=== PATIENT | female | born 1940 | race Caucasian/White ===

== ENCOUNTER → 2017-12-03 | Outpatient (CLI) | payer OTHER ==
[~2017-12-03] MED LIST: ALBU90OI INH; CEFP200 PO; CHOL10002; COENZYME Q-1030 MG; FERRO-TIME325 MG PO; FURO40 PO; LISI5 PO; Lovastatin20 MG PO; PANT20 PO; POTCHL20ER PO; PRED20 PO; Sotalol80 MG PO; XARELTO20 MG PO
== END | disposition home or self-care (01) ==
LOC: LAB 16:54
DX: N39.0 Urinary tract infection, site not specified (principal)
CPT/HCPCS: 87086; 87147

== ENCOUNTER → 2018-07-01 | Outpatient (CLI) | payer OTHER | END | disposition home or self-care (01) | LOC: LAB SHORT 12:58 → LAB EV 12:58 | DX: M10.072 Idiopathic gout, left ankle and foot (principal) | CPT/HCPCS: 84550 ==

== ENCOUNTER → 2018-10-02 | Outpatient (CLI) | payer OTHER | END | disposition home or self-care (01) | LOC: LAB EV 13:38 → LAB SHORT 13:38 | DX: N39.0 Urinary tract infection, site not specified (principal) | CPT/HCPCS: 87086 ==

== ENCOUNTER → 2019-05-07 | Outpatient (CLI) | payer OTHER ==
[~2019-05-07] MED LIST changes: -CHOL10002; +CHOL10002 PO; +HYDR1TAB94 PO; +LIDO700A20 TOP; +METO50ER; +Zyloprim100 MG PO
== END | disposition home or self-care (01) ==
LOC: LAB SHORT 13:14 → LAB EV 13:14
DX: N39.0 Urinary tract infection, site not specified (principal)
CPT/HCPCS: 87077; 87086; 87186

== ENCOUNTER → 2019-05-07 | Outpatient (CLI) | payer OTHER ==
[2019-05-07 12:21] LABS: BASOPHILS ABSOLUTE AUTO 0.04 K/mm3 (0.00-0.23); BASOPHILS PERCENT AUTO 0 % (0-2); EOSINOPHILS ABSOLUTE AUTO 0.17 K/mm3 (0.00-0.68); EOSINOPHILS PERCENT AUTO 2 % (0-6); Hematocrit 37.5 % (33.0-51.0); Hemoglobin 12.5 g/dL (11.5-16.0); IMMATURE GRAN ABSOLUTE AUTO 0.05 K/mm3 (0.00-0.10); IMMATURE GRAN PERCENT AUTO 0 % (0-1); LYMPHOCYTES ABSOLUTE AUTO 2.09 K/mm3 (0.84-5.20); LYMPHOCYTES PERCENT AUTO 18 % (21-46); MONOCYTES ABSOLUTE AUTO 0.61 K/mm3 (0.16-1.47); MONOCYTES PERCENT AUTO 5 % (4-13); Mean Corpuscular HGB Conc 33.3 g/dL (31.5-36.5); Mean Corpuscular Volume 87 fL (80-100); Mean Platelet Volume 10.5 fL (9.1-12.4); NEUTROPHILS ABSOLUTE AUTO 8.75 K/mm3 (1.96-9.15); NEUTROPHILS PERCENT AUTO 75 % (41-73); Platelet Count 260 K/mm3 (150-400); RDW Standard Deviation 43.9 fL (35.1-46.3); Red Blood Cell Count 4.31 M/mm3 (3.80-5.20); White Blood Cell Count 11.71 K/mm3 (4.00-11.30)
[2019-05-07 12:42] LABS: Bun/Creatinine Ratio 27.2 (12.0-20.0); Calcium, Blood 9.3 mg/dL (8.5-10.1); Creatinine, Blood 1.14 mg/dL (0.40-1.00); Potassium, Blood 4.5 mmol/L (3.5-5.5)
== END | disposition home or self-care (01) ==
LOC: LAB SHORT 12:18 → LAB EV 12:18
PROVIDERS: Physician Assistant Surgical
DX: R06.00 Dyspnea, unspecified (principal)
CPT/HCPCS: 80048; 83880; 84484; 85025

== ENCOUNTER 2019-05-19 08:28 | Emergency (ER) | payer OTHER ==
[~2019-05-19] VITALS: Ht 157.5 cm; Wt 115.7 kg
[~2019-05-19 08:28] MED LIST changes: -HYDR1TAB94 PO; -LIDO700A20 TOP; -METO50ER; -Zyloprim100 MG PO
[2019-05-19 09:39] LABS: Source, Urine Clean Catch
[2019-05-19 09:41] LABS: Bilirubin, Urine Neg (Neg); Blood, Urine 2+ (Neg); Glucose Qualitative, Urine Neg (Neg); Ketones, Urine Neg (Neg); Leukocyte Esterase, Urine 1+ (Neg); Nitrite, Urine Neg (Neg); Protein, Urine Neg (Neg); Urobilinogen, Urine NORM (Normal); pH, Urine 6.5 (5.0-8.0)
[2019-05-19 09:48] LABS: Appearance, Urine Clear (Clear); Color, Urine Yellow (P-Yellow)
[2019-05-19 09:50] LABS: Bacteria Rare /hpf; Squamous Epithelial Cells Few /hpf (Few)
[2019-05-19] MEDS ORDERED: METO50ER (10:16)
[2019-05-19] MEDS ORDERED: Zyloprim100 MG PO (10:17)
[2019-05-19 11:52] LABS: BASOPHILS ABSOLUTE AUTO 0.03 K/mm3 (0.00-0.23); BASOPHILS PERCENT AUTO 0 % (0-2); EOSINOPHILS ABSOLUTE AUTO 0.07 K/mm3 (0.00-0.68); EOSINOPHILS PERCENT AUTO 1 % (0-6); Hematocrit 35.6 % (33.0-51.0); Hemoglobin 11.7 g/dL (11.5-16.0); IMMATURE GRAN ABSOLUTE AUTO 0.05 K/mm3 (0.00-0.10); IMMATURE GRAN PERCENT AUTO 1 % (0-1); LYMPHOCYTES ABSOLUTE AUTO 1.59 K/mm3 (0.84-5.20); LYMPHOCYTES PERCENT AUTO 17 % (21-46); MONOCYTES ABSOLUTE AUTO 0.59 K/mm3 (0.16-1.47); MONOCYTES PERCENT AUTO 6 % (4-13); Mean Corpuscular HGB 29.5 pg (26.0-34.0); Mean Corpuscular HGB Conc 32.9 g/dL (31.5-36.5); Mean Platelet Volume 9.9 fL (9.1-12.4); NEUTROPHILS ABSOLUTE AUTO 7.15 K/mm3 (1.96-9.15); NEUTROPHILS PERCENT AUTO 76 % (41-73); Platelet Count 241 K/mm3 (150-400); RDW Coefficient Variation 14.1 % (11.7-14.2); RDW Standard Deviation 46.3 fL (35.1-46.3); Red Blood Cell Count 3.97 M/mm3 (3.80-5.20); White Blood Cell Count 9.48 K/mm3 (4.00-11.30)
[2019-05-19 11:53] LABS: Mean Corpuscular Volume 90 fL (80-100)
[2019-05-19 12:14] LABS: Alanine Aminotransfer (ALT/SGP 19 U/L (12-78); Albumin, Blood 3.6 g/dL (3.4-5.0); Alk Phos 99 U/L (50-136); Anion Gap 7 mmol/L (6-16); Aspartate Aminotrans (AST/SGOT 11 U/L (12-37); Bilirubin, Total 0.5 mg/dL (0.1-1.0); Blood Urea Nitrogen 18 mg/dL (8-24); Bun/Creatinine Ratio 19.5 (12.0-20.0); CO2, Blood 27 mmol/L (21-32); Calcium, Blood 9.2 mg/dL (8.5-10.1); Chloride, Blood 101 mmol/L (98-108); Creatinine, Blood 0.92 mg/dL (0.40-1.00); Globulin, Blood 3.5 g/dL (2.2-4.0); Glomerular Filtration Rate >60 (60-); Glucose, Blood 117 mg/dL (70-99); Sodium, Blood 135 mmol/L (136-145); Total Protein, Blood 7.1 g/dL (6.4-8.2)
[2019-05-19] MEDS ORDERED: HYDR1TAB94 PO (12:48)
[2019-05-19] MEDS ORDERED: LIDO700A20 TOP (12:48)
== END 2019-05-19 12:55 | disposition home or self-care (01) ==
LOC: ER 08:28
PROVIDERS: Emergency Medicine; Physician Assistant
DX: R10.9 Unspecified abdominal pain (principal); M54.5 Low back pain; Z88.2 Allergy status to sulfonamides; Z88.1 Allergy status to other antibiotic agents; Z88.0 Allergy status to penicillin; Z79.899 Other long term (current) drug therapy; I48.91 Unspecified atrial fibrillation; I10 Essential (primary) hypertension; E78.5 Hyperlipidemia, unspecified; K21.9 Gastro-esophageal reflux disease without esophagitis; Z87.891 Personal history of nicotine dependence
CPT/HCPCS: 36415; 74177; 80053; 81001; 83690; 85025; 87086; 99284-25; Q9967

== ENCOUNTER → 2019-06-23 | Outpatient (CLI) | payer OTHER ==
[~2019-06-23] MED LIST changes: +HYDR1TAB94 PO; +LIDO700A20 TOP; +METO50ER; +Zyloprim100 MG PO
== END | disposition home or self-care (01) ==
LOC: LAB EV 11:28 → LAB SHORT 11:28
DX: N39.0 Urinary tract infection, site not specified (principal)
CPT/HCPCS: 87077; 87086; 87186

== ENCOUNTER → 2019-11-28 | Outpatient (CLI) | payer OTHER | END | disposition home or self-care (01) | LOC: LAB EV 11:56 → LAB SHORT 11:56 | DX: N39.0 Urinary tract infection, site not specified (principal) | CPT/HCPCS: 87077; 87086; 87186 ==

== ENCOUNTER → 2020-06-17 | Outpatient (CLI) | payer OTHER | END | disposition home or self-care (01) | LOC: LAB SHORT 13:55 → LAB EV 13:55 | DX: N39.0 Urinary tract infection, site not specified (principal) | CPT/HCPCS: 87077; 87086; 87186 ==

== ENCOUNTER → 2020-11-01 | Outpatient (CLI) | payer OTHER ==
[~2020-11-01] MED LIST changes: +DILT180 PO; +METF500 PO
== END | disposition home or self-care (01) ==
LOC: LAB EV 18:19 → LAB SHORT 18:19
DX: N39.0 Urinary tract infection, site not specified (principal)
CPT/HCPCS: 87077; 87086; 87186

== ENCOUNTER 2020-12-05 08:33 | Day surgery (SDC) | payer OTHER ==
[~2020-12-05] VITALS: Ht 157.5 cm; Wt 107.9 kg
[~2020-12-05 08:33] MED LIST changes: -DILT180 PO; -METF500 PO
[2020-12-05] MEDS ORDERED: DILT180 PO (09:18)
[2020-12-05] MEDS ORDERED: METF500 PO (09:19)
--- NOTE | 2020-12-05 09:30 | NUR ---
12/05/20 0930 Thelma Elena BLOCK STARTED IN THE RIGHT HAND BY PEREZ. PT TOLERATED WELL. RN FLUSHED BLOCK WITH 10ML OF NORMAL SALINE.
== END 2020-12-05 11:08 | disposition home or self-care (01) ==
LOC: ORSCSDS 08:33
PROVIDERS: Orthopaedic Surgery
PROC: 01N50ZZ Release Median Nerve, Open Approach (ICD-10-PCS; principal; 2020-12-05 09:45)
DX: G56.01 Carpal tunnel syndrome, right upper limb (principal); Z95.0 Presence of cardiac pacemaker; Z79.899 Other long term (current) drug therapy; I10 Essential (primary) hypertension; G47.33 Obstructive sleep apnea (adult) (pediatric); I48.91 Unspecified atrial fibrillation; E66.01 Morbid (severe) obesity due to excess calories; Z68.41 Body mass index [BMI] 40.0-44.9, adult; Z79.01 Long term (current) use of anticoagulants; Z87.891 Personal history of nicotine dependence; Z79.84 Long term (current) use of oral hypoglycemic drugs
CPT/HCPCS: 82947; J0690; J2250; J3010; J7120

== ENCOUNTER → 2020-12-13 | Outpatient (CLI) | payer OTHER ==
[~2020-12-13] MED LIST changes: +DILT180 PO; +METF500 PO
== END | disposition home or self-care (01) ==
LOC: LAB SHORT 18:49 → PLD 18:49
DX: N39.0 Urinary tract infection, site not specified (principal)
CPT/HCPCS: 87077; 87086; 87186

== ENCOUNTER → 2021-03-29 | Outpatient (CLI) | payer OTHER | END | disposition home or self-care (01) | LOC: LAB SHORT 18:56 → LAB EV 18:56 | DX: N39.0 Urinary tract infection, site not specified (principal) | CPT/HCPCS: 87077; 87086; 87186 ==

== ENCOUNTER → 2021-12-20 | Outpatient (CLI) | payer OTHER | END | disposition home or self-care (01) | LOC: LAB SHORT 11:22 | DX: N39.0 Urinary tract infection, site not specified (principal) | CPT/HCPCS: 87077; 87086; 87186 ==

== ENCOUNTER → 2022-03-13 | Outpatient (CLI) | payer OTHER | LOC: LAB SHORT 09:57 → LAB 09:57 | DX: N39.0 Urinary tract infection, site not specified (principal) | CPT/HCPCS: 87077; 87086; 87186 ==

== ENCOUNTER → 2022-04-02 | Outpatient (CLI) | payer OTHER | END | disposition home or self-care (01) | LOC: LAB SHORT 12:46 → LAB 12:46 | DX: N39.0 Urinary tract infection, site not specified (principal) | CPT/HCPCS: 87077; 87086; 87186 ==

== ENCOUNTER → 2022-04-16 | Outpatient (CLI) | payer OTHER | END | disposition home or self-care (01) | LOC: LAB 15:00 → LAB SHORT 15:00 | DX: N39.0 Urinary tract infection, site not specified (principal) | CPT/HCPCS: 87077; 87086; 87186 ==

== ENCOUNTER → 2022-04-28 | Outpatient (CLI) | payer OTHER | END | disposition home or self-care (01) | LOC: LAB SHORT 12:16 | DX: N39.0 Urinary tract infection, site not specified (principal) | CPT/HCPCS: 87077; 87086; 87186 ==

== ENCOUNTER → 2022-05-11 | Outpatient (CLI) | payer OTHER | LOC: LAB SHORT 12:44 → LAB 12:44 | DX: N39.0 Urinary tract infection, site not specified (principal) | CPT/HCPCS: 87077; 87086; 87186 ==

== ENCOUNTER → 2022-07-05 | Outpatient (CLI) | payer OTHER | END | disposition home or self-care (01) | LOC: LAB SHORT 12:41 → LAB 12:41 | DX: N39.0 Urinary tract infection, site not specified (principal) | CPT/HCPCS: 87077; 87086; 87186 ==

== ENCOUNTER 2022-08-16 05:59 | Emergency (ER) | payer OTHER ==
[~2022-08-16] VITALS: Ht 157.5 cm; Wt 108.9 kg
[2022-08-16 06:58] LABS: BASOPHILS ABSOLUTE AUTO 0.02 K/mm3 (0.00-0.23); BASOPHILS PERCENT AUTO 0 % (0-2); EOSINOPHILS ABSOLUTE AUTO 0.01 K/mm3 (0.00-0.68); EOSINOPHILS PERCENT AUTO 0 % (0-6); Hemoglobin 12.4 g/dL (11.5-16.0); IMMATURE GRAN PERCENT AUTO 1 % (0-1); LYMPHOCYTES ABSOLUTE AUTO 1.71 K/mm3 (0.84-5.20); LYMPHOCYTES PERCENT AUTO 11 % (21-46); MONOCYTES ABSOLUTE AUTO 1.08 K/mm3 (0.16-1.47); MONOCYTES PERCENT AUTO 7 % (4-13); Mean Corpuscular HGB 30.6 pg (26.0-34.0); Mean Corpuscular HGB Conc 35.4 g/dL (31.5-36.5); Mean Corpuscular Volume 86 fL (80-100); NEUTROPHILS ABSOLUTE AUTO 12.36 K/mm3 (1.96-9.15); NEUTROPHILS PERCENT AUTO 81 % (41-73); Platelet Count 307 K/mm3 (150-400); RDW Coefficient Variation 14.4 % (11.7-14.2); RDW Standard Deviation 45.3 fL (35.1-46.3); Red Blood Cell Count 4.05 M/mm3 (3.80-5.20); White Blood Cell Count 15.28 K/mm3 (4.00-11.30)
[2022-08-16 07:15] LABS: Albumin, Blood 3.9 g/dL (3.4-5.0); Bilirubin, Total 0.4 mg/dL (0.1-1.0); Bun/Creatinine Ratio 33.3 (12.0-20.0); Calcium, Blood 9.6 mg/dL (8.5-10.1); Creatinine, Blood 0.78 mg/dL (0.40-1.00); Globulin, Blood 3.8 g/dL (2.2-4.0); Potassium, Blood 4.3 mmol/L (3.5-5.5); Total Protein, Blood 7.7 g/dL (6.4-8.2)
[2022-08-16 07:38] LABS: Source, Urine Clean Catch
[2022-08-16 07:42] LABS: Appearance, Urine Hazy (Clear); Bilirubin, Urine Neg (Neg); Blood, Urine 2+ (Neg); Color, Urine Yellow (P-Yellow); Glucose Qualitative, Urine Neg (Neg); Ketones, Urine Neg (Neg); Leukocyte Esterase, Urine 3+ (Neg); Nitrite, Urine Neg (Neg); Protein, Urine 2+ (Neg); Specific Gravity, Urine 1.015 (1.003-1.022); Urobilinogen, Urine NORM (Normal); pH, Urine 6.5 (5.0-8.0)
[2022-08-16 07:54] LABS: Bacteria Mod /hpf; Red Blood Cells, Urine 0-2 /hpf (0-2); Squamous Epithelial Cells Few /hpf (Few); White Blood Cells, Urine 25-50 /hpf (0-5)
[2022-08-16 07:55] LABS: Mucus Light (0-Heavy)
[2022-08-17] MEDS ORDERED: MIRALAX17 GM PO (16:16)
[2022-08-17] MEDS ORDERED: DOCU100 PO (16:16)
== END 2022-08-16 08:54 | disposition home or self-care (01) ==
LOC: ER 05:59
PROVIDERS: Emergency Medicine
DX: N10 Acute pyelonephritis (principal); I10 Essential (primary) hypertension; I48.91 Unspecified atrial fibrillation; E78.5 Hyperlipidemia, unspecified; K21.9 Gastro-esophageal reflux disease without esophagitis; Z79.899 Other long term (current) drug therapy; Z79.01 Long term (current) use of anticoagulants; Z88.0 Allergy status to penicillin; Z88.1 Allergy status to other antibiotic agents; Z88.2 Allergy status to sulfonamides
CPT/HCPCS: 36415; 74177; 80053; 81001; 85025; J2270; Q9967

== ENCOUNTER 2022-08-17 07:11 | Inpatient (IN) | payer OTHER ==
[~2022-08-17] VITALS: Ht 157.5 cm; Wt 116.6 kg
[~2022-08-17 07:11] MED LIST changes: -DILT180 PO; +DILTIAZEM 24HR360 MG PO; +LISI20 PO; -LISI5 PO; -METF500 PO; +METF500C PO; -PANT20 PO; +PANT40 PO
[2022-08-17 10:07] LABS: BASOPHILS ABSOLUTE AUTO 0.02 K/mm3 (0.00-0.23); BASOPHILS PERCENT AUTO 0 % (0-2); Hematocrit 35.7 % (33.0-51.0); Hemoglobin 12.1 g/dL (11.5-16.0); LYMPHOCYTES ABSOLUTE AUTO 1.44 K/mm3 (0.84-5.20); LYMPHOCYTES PERCENT AUTO 11 % (21-46); MONOCYTES ABSOLUTE AUTO 0.97 K/mm3 (0.16-1.47); MONOCYTES PERCENT AUTO 7 % (4-13); Mean Corpuscular HGB 29.4 pg (26.0-34.0); Mean Corpuscular HGB Conc 33.9 g/dL (31.5-36.5); Mean Corpuscular Volume 87 fL (80-100); Platelet Count 275 K/mm3 (150-400); RDW Coefficient Variation 14.4 % (11.7-14.2); RDW Standard Deviation 45.6 fL (35.1-46.3); Red Blood Cell Count 4.12 M/mm3 (3.80-5.20); White Blood Cell Count 13.61 K/mm3 (4.00-11.30)
[2022-08-17 10:08] LABS: EOSINOPHILS ABSOLUTE AUTO 0.22 K/mm3 (0.00-0.68); EOSINOPHILS PERCENT AUTO 2 % (0-6); IMMATURE GRAN ABSOLUTE AUTO 0.12 K/mm3 (0.00-0.10); IMMATURE GRAN PERCENT AUTO 1 % (0-1); NEUTROPHILS ABSOLUTE AUTO 10.84 K/mm3 (1.96-9.15); NEUTROPHILS PERCENT AUTO 80 % (41-73)
[2022-08-17 10:17] LABS: Albumin, Blood 3.6 g/dL (3.4-5.0); Bilirubin, Total 0.7 mg/dL (0.1-1.0); Bun/Creatinine Ratio 23.5 (12.0-20.0); Calcium, Blood 9.6 mg/dL (8.5-10.1); Creatinine, Blood 0.6 mg/dL (0.40-1.00); Globulin, Blood 3.6 g/dL (2.2-4.0); Potassium, Blood 4.1 mmol/L (3.5-5.5); Total Protein, Blood 7.2 g/dL (6.4-8.2)
[2022-08-17] MEDS ORDERED: MIRALAX17 GM PO (16:16)
[2022-08-17] MEDS ORDERED: DOCU100 PO (16:16)
--- NOTE | 2022-08-17 16:25 | NUR ---
SHIFT SUMMARY/NOTE: PATIENT CAME UP FROM ER TODAY AT 1545. SHE IS A&OX4 BUT IS [place]OP[place] OUT OF HER LEFT EAR. PATIENT REPORTS 8/10 PAIN AT THIS TIME. WILL MEDICATE PER EMAR. SHE WAS ABLE TO STAND PIVIOT FROM THE GURNEY TO THE BED INDEP. PATIENT REPORTS THE MOST PAIN IN HER LOWER BACK AND STATES "RIGHT WHERE MY KIDNEYS ARE IS WHERE IT HURTS THE MOST". SHE IS VOIDING AND PASSING SMALL AMOUNTS OF GAS. SHE IS CURRENTLY SITTING UP IN THE CHAIR WITH CALL LIGHT WITHIN REACH.
--- NOTE | 2022-08-18 05:06 | NUR ---
Patient given prn medication for pain and nausea, medication effective, patient resting in room.
[2022-08-18 06:13] LABS: Hematocrit 35.6 % (33.0-51.0); Hemoglobin 12.4 g/dL (11.5-16.0); Mean Corpuscular HGB 29.6 pg (26.0-34.0); Mean Corpuscular HGB Conc 34.8 g/dL (31.5-36.5); Mean Corpuscular Volume 85 fL (80-100); Mean Platelet Volume 9.3 fL (9.1-12.4); Platelet Count 259 K/mm3 (150-400); RDW Coefficient Variation 14.3 % (11.7-14.2); RDW Standard Deviation 44.3 fL (35.1-46.3); Red Blood Cell Count 4.19 M/mm3 (3.80-5.20); White Blood Cell Count 10.59 K/mm3 (4.00-11.30)
[2022-08-18 06:44] LABS: Albumin, Blood 3.3 g/dL (3.4-5.0); Albumin/Globulin Ratio 0.9 (0.8-1.8); BASOPHILS PERCENT MAN 0 % (0-2); Bilirubin, Total 0.9 mg/dL (0.1-1.0); Bun/Creatinine Ratio 17.8 (12.0-20.0); Calcium, Blood 9.2 mg/dL (8.5-10.1); Creatinine, Blood 0.62 mg/dL (0.40-1.00); EOSINOPHILS PERCENT MAN 0 % (0-6); Globulin, Blood 3.5 g/dL (2.2-4.0); LYMPHOCYTES PERCENT MAN 18 % (21-46); MONOCYTES ABSOLUTE MAN 0.52 K/mm3 (0.16-1.47); MONOCYTES PERCENT MAN 5 % (4-13); Magnesium, Blood 1.9 mg/dL (1.6-2.4); NEUTROPHILS ABSOLUTE MAN 8.15 K/mm3 (1.96-9.15); Potassium, Blood 3.8 mmol/L (3.5-5.5); SEG NEUTROPHILS PERCENT MAN 77 % (41-73); TOTAL CELLS COUNTED 100; Total Protein, Blood 6.8 g/dL (6.4-8.2)
--- NOTE | 2022-08-18 18:10 | NUR ---
SHIFT SUMMARY WHIT IS IN ISOLATION FOR ESBL. SHE IS PREFERRING TYLENOL OVER NORCO FOR PAIN CONTROL. TYLENOL WORKS WELL, AND DOESN'T MAKE HER FEEL "WOOZY." STARTED MEREN IV. PT IS INDEPENDENT IN ATTENDS. LEFT ARM IV ACCESS, FLUSHES WELL. ROOM AIR. a&O X4.
--- NOTE | 2022-08-18 18:54 | NUR ---
PT IS INDEPENDENT IN THE ROOM. SHE REPORTED LOOSE STOOLS TODAY. SHE ALSO REPORTED AN INCREASE IN APPETITE.
--- NOTE | 2022-08-19 05:40 | NUR ---
SHIFT SUMMARY PT IS STILL REPORTING LOOSE STOLLS. SHE WAS ALSO HAVING TROUBLE CONTROLLING HER PAIN AT THE START OF SHIFT. TORRADOL WAS FOUND TO WORK THE BEST AND PT WAS ABLE TO REST COMFORTABLE AND SLEEP A BIT. BED IN LOWEST POSITION AND CALL LIGHT IN REACH.
[2022-08-19 06:19] LABS: BASOPHILS ABSOLUTE AUTO 0.02 K/mm3 (0.00-0.23); BASOPHILS PERCENT AUTO 0 % (0-2); EOSINOPHILS ABSOLUTE AUTO 0.09 K/mm3 (0.00-0.68); EOSINOPHILS PERCENT AUTO 1 % (0-6); Hematocrit 35.8 % (33.0-51.0); Hemoglobin 12.1 g/dL (11.5-16.0); IMMATURE GRAN ABSOLUTE AUTO 0.07 K/mm3 (0.00-0.10); IMMATURE GRAN PERCENT AUTO 1 % (0-1); LYMPHOCYTES ABSOLUTE AUTO 1.81 K/mm3 (0.84-5.20); LYMPHOCYTES PERCENT AUTO 16 % (21-46); MONOCYTES ABSOLUTE AUTO 0.82 K/mm3 (0.16-1.47); MONOCYTES PERCENT AUTO 7 % (4-13); Mean Corpuscular HGB 29.2 pg (26.0-34.0); Mean Corpuscular HGB Conc 33.8 g/dL (31.5-36.5); Mean Corpuscular Volume 86 fL (80-100); Mean Platelet Volume 9.8 fL (9.1-12.4); NEUTROPHILS PERCENT AUTO 75 % (41-73); Platelet Count 271 K/mm3 (150-400); RDW Coefficient Variation 14.3 % (11.7-14.2); RDW Standard Deviation 45.1 fL (35.1-46.3); Red Blood Cell Count 4.15 M/mm3 (3.80-5.20); White Blood Cell Count 11.11 K/mm3 (4.00-11.30)
[2022-08-19 06:45] LABS: Bun/Creatinine Ratio 21.2 (12.0-20.0); Creatinine, Blood 0.8 mg/dL (0.40-1.00)
--- NOTE | 2022-08-19 12:00 | NUR ---
PT TEARFUL, STATES THAT HER PAIN IS NOT WELL MANAGED. SHE IS WONDERING IF SHE WOULD BE MORE COMFORTABLE AT HOME. RN DISCUSSES TRYING FENTANYL AGAIN, WITH TYLENOL AND THEN IN A FEW HOURS TRYING NORCO - TO PROVIDE BASELINE PAIN COVERAGE WITH PRNS.
--- NOTE | 2022-08-19 14:00 | NUR ---
PT, SITTING IN A CHAIR BY THE WINDOW, READING. REPORTS THAT HER PAIN IS TOLERABLE AT THIS TIME.
--- NOTE | 2022-08-19 18:38 | NUR ---
SHIFT SUMMARY PT HAD A MORE TOLERABLE DAY TODAY, AFTER A DIFFICULT NIGHT LAST NIGHT MANAGING PAIN. PT WAS NOT EVER COMPLETELY COMFORTABLE - REPORTING CONSTANT PAIN IN HER LEFT HIP, LEFT LEG AND LOWER BACK. PRNS GIVEN - NORCO, TORADOL, TYLENOL, FENTANYL - TO FIND THE RIGHT COMBINATION. FENTANYL SEEMED TO BE THE MOST EFFECTIVE. ROOM AIR. IV ACCESS TO LEFT UPPER ARM. A & O X4. INDEPENDENT IN ROOM.
--- NOTE | 2022-08-20 08:21 | NUR ---
SHIFT SUMMARY PT AOX4 T/O SHIFT, CONTINUES TO C/O SEVERE PAIN IN L FLANK RADIATING TO LLQ AND INTO L HIP AND DOWN L LEG. SOME RELIEF WITH USE OF HEAT PAD AND MEDICATIONS PER EMAR. PT HAD SOME RELIEF THIS AM AFTER STRUGGLING TO GET COMFORTABLE T/O SHIFT.
--- NOTE | 2022-08-20 18:19 | NUR ---
SHIFT SUMMARY PT HAS BEEN COOPERATIVE AND COMPLIANT ALL SHIFT. SHE HAS C/O PAIN AND HAS BEEN MEDICATED PER THE EMAR. SHE HAS BEEN NAPPING THROUGHOUT THE DAY, WAKING WHEN SHE NEEDS TO MAKE HER NEEDS KNOWN. CALL LIGHT PLACED WITHIN REACH.
--- NOTE | 2022-08-20 23:58 | NUR ---
POST FALL ASSESSMENT PROCESS INTERVENTION NOT FUNCTIONING CORRECTLY AFTER [employer] UPDATE. THIS NOTE IS TO REPLACE THAT CHARTING. PATIENT FELL AT 1915 IN BATHROOM, STATED SHE SLIPPED AND DENIED HEAD IMPACT. DENIED PAIN AND STATED THAT HER "KNEES ARE TOO WEAK TO GET BACK UP WHEN THIS HAPPENS" DAUGHTER NOTIFIED (WAS PRESENT AT BEDSIDE). MD NOTIFIED AT 2014 AND IS AWARE THAT PATIENT IS ON XERALTO; NO NEW ORDERS AT THIS TIME. VSS (SEE VITALS SECTION OF CHART). HEAD TO TOE SKIN CHECK WDL. NO CHANGE IN LOC - A/OX4.
--- NOTE | 2022-08-21 07:26 | NUR ---
NO CHANGES SINCE PRIOR NOTE. CALLING APPROPRIATELY FOR SBA TRANSFER.
--- NOTE | 2022-08-21 17:17 | NUR ---
SHIFT SUMMARY PT HAS BEEN COOPERATIVE AND PLEASANT THIS SHIFT. SHE HAS BEEN ALTERNATING FROM THE CHAIR TO THE BED THROUGHTOUT THE SHIFT. PAIN HAS BEEN AN ISSUE BUT SHE WAS MEDICATED T/O THE SHIFT ACCORDING TO THE EMAR. SHE REQUESTED TO SPEAK TO PALLIATIVE ABOUT HOSPICE CARE AFTER HER STAY SO A CONSULT WAS PUT IN AND SHE IS AWAITING A CONSULT. CALL LIGHT HAS BEEN PLACED WITHIN REACH AND SHE IS CURRENTLY RESTING IN THE CHAIR.
--- NOTE | 2022-08-22 06:39 | NUR ---
FITNESS ASSISTANT SUMMARY: A&Ox4. PLEASANT AND COOPERATIVE WITH CARE, BUT OBVIOUSLY BATTLING DEPRESSION. HAS REQUESTED A HOSPICE REFERRAL SHE IS "DONE". REPORTS FEELING LIKE SHE HAS LIVED A LONG AND FULFULLING LIFE AND NOW THAT SHE IS IN PAIN ALL OF THE TIME, SHE WOULD JUST RATHER GO ON HOSPICE AND BE ABLE TO TREAT THE PAIN OPPOSED TO HAVING TO MISS OUT ON EVENTS D/T THE PAIN. AFRAID OF BEING A BOTHER TO HER DAUGHTERS. PALLIATIVE CARE CONSULT ALREADY IN CHART. NON DESTRUCTIVE TESTER SUGGESTED PSYCH CONSULT, WELL. MEDICATED x3 W/ NORCO FOR LEFT KNEE PAIN; THIS IS A CHRONIC ISSUE BUT HAS BEEN WORSE SINCE FALLING IN HER BATHROOM YESTERDAY. C/O DIFFICULTY SLEEPING AND BEING ABLE TO GET COMFORTABLE IN BED. HELPED HER GET INTO BED AND SUPPORTED WITH SEVERAL PILLOWS. THIS HELPED HER SLEEP AND SEEMED TO HELP BOOST HER MOOD, SOME. VSS. WILL REPORT TO ONCOMING RN.
--- NOTE | 2022-08-22 14:27 | NUR ---
Pt resting in bed upon arrival. Pt is A&O and reports 7/10 pain in her back that radiates to her leg. Pt denies dyspnea, nausea, and anxiety. Pt's daughter Olamide at bedside. Discussed comments Pt made to staff about inquiring hospice. Pt reports meaning needing to plan for hospice in the future. Gentle education on disease process including trajectory. Commended Pt on planning for the future. Discussed the importance of routine conversation with PCP regarding disease and goals for end of life care. Answered questions and continued supportive visit. Pt reports RN is aware of her pain and is bringing pain medication. No other concerns reported at this time. Spoke with Primary RNs Shivani and Vero. Discussed case and concerns. Palliative Care will remain available.
[2022-08-22] MEDS ORDERED: HYDROCODONE-AC1 EA10 PO (17:42)
--- NOTE | 2022-08-22 18:29 | NUR ---
DISCHARGE NOTE PT LEFT WITH HER DAUGHTER VIA WHEELCHAIR TO HER VEHICLE. HER POWER GLIDE WAS REMOVED AND FULLY INTACT. SHE RECEIVED ALL OF HER DISCHARGE PAPERWORK AND HER MEDICATIONS WERE FAXED TO THE PHARMACY OF HER CHOICE, [facility]. ALL OF HER VALUABLE WERE RETURNED TO HER AND FOLLOW UP INSTRUCTIONS WERE PROVIDED.
[2022-08-23] MEDS ORDERED: AMOCLA875 PO ×2 (17:16→17:17)
== END 2022-08-22 18:35 | disposition home or self-care (01) | DRG 690 ==
LOC: ER 07:11 → ERHOLD 07:12 → ER 12:22 → ERHOLD 12:22 → ER 15:29 → ERHOLD 15:44 → MEDS 15:44 → ERHOLD 08-18 15:54 → MEDS 08-18 15:54
PROVIDERS: Emergency Medicine; ADMIT Internal Medicine
DX: N39.0 Urinary tract infection, site not specified (principal); E87.1 Hypo-osmolality and hyponatremia; I50.32 Chronic diastolic (congestive) heart failure; I48.91 Unspecified atrial fibrillation; I27.20 Pulmonary hypertension, unspecified; K21.9 Gastro-esophageal reflux disease without esophagitis; Z66 Do not resuscitate; I11.0 Hypertensive heart disease with heart failure; E11.9 Type 2 diabetes mellitus without complications; B96.1 Klebsiella pneumoniae [K. pneumoniae] as the cause of diseases classified elsewhere; E78.5 Hyperlipidemia, unspecified; G47.33 Obstructive sleep apnea (adult) (pediatric); M19.90 Unspecified osteoarthritis, unspecified site; M10.9 Gout, unspecified; Z88.1 Allergy status to other antibiotic agents; Z87.42 Personal history of other diseases of the female genital tract; Z88.2 Allergy status to sulfonamides; Z88.0 Allergy status to penicillin; Z79.899 Other long term (current) drug therapy; Z90.49 Acquired absence of other specified parts of digestive tract; Z90.710 Acquired absence of both cervix and uterus; Z98.890 Other specified postprocedural states; Z95.0 Presence of cardiac pacemaker; Z79.01 Long term (current) use of anticoagulants; Z79.811 Long term (current) use of aromatase inhibitors; Z79.84 Long term (current) use of oral hypoglycemic drugs
CPT/HCPCS: 36415; 80048; 80053; 83735; 85025; 96361; 96365; 96366; 96375; 96376; 99283-25; A9270; C1751; G0378; J0696; J1885; J2185; J2405; J3010; J7030; J7050

== ENCOUNTER 2022-08-23 11:58 | Emergency (ER) | payer MEDICARE ==
[~2022-08-23] VITALS: Ht 157.5 cm; Wt 108.9 kg
[~2022-08-23 11:58] MED LIST changes: +DOCU100 PO; +HYDROCODONE-AC1 EA10 PO; +MIRALAX17 GM PO
[2022-08-23 12:52] LABS: BASOPHILS ABSOLUTE AUTO 0.03 K/mm3 (0.00-0.23); BASOPHILS PERCENT AUTO 0 % (0-2); EOSINOPHILS ABSOLUTE AUTO 0.07 K/mm3 (0.00-0.68); EOSINOPHILS PERCENT AUTO 1 % (0-6); Hematocrit 34.8 % (33.0-51.0); Hemoglobin 12.3 g/dL (11.5-16.0); IMMATURE GRAN ABSOLUTE AUTO 0.08 K/mm3 (0.00-0.10); IMMATURE GRAN PERCENT AUTO 1 % (0-1); LYMPHOCYTES ABSOLUTE AUTO 1.21 K/mm3 (0.84-5.20); LYMPHOCYTES PERCENT AUTO 12 % (21-46); MONOCYTES PERCENT AUTO 8 % (4-13); Mean Corpuscular HGB 30.1 pg (26.0-34.0); Mean Corpuscular HGB Conc 35.3 g/dL (31.5-36.5); Mean Corpuscular Volume 85 fL (80-100); Mean Platelet Volume 8.8 fL (9.1-12.4); NEUTROPHILS ABSOLUTE AUTO 8.19 K/mm3 (1.96-9.15); NEUTROPHILS PERCENT AUTO 79 % (41-73); Platelet Count 263 K/mm3 (150-400); RDW Coefficient Variation 14.3 % (11.7-14.2); RDW Standard Deviation 44.2 fL (35.1-46.3); Red Blood Cell Count 4.08 M/mm3 (3.80-5.20); White Blood Cell Count 10.38 K/mm3 (4.00-11.30)
[2022-08-23 13:21] LABS: Albumin, Blood 3.6 g/dL (3.4-5.0); Albumin/Globulin Ratio 0.9 (0.8-1.8); Bilirubin, Total 0.6 mg/dL (0.1-1.0); Calcium, Blood 9.9 mg/dL (8.5-10.1); Creatinine, Blood 0.59 mg/dL (0.40-1.00); Globulin, Blood 3.8 g/dL (2.2-4.0); Potassium, Blood 4.4 mmol/L (3.5-5.5); Total Protein, Blood 7.4 g/dL (6.4-8.2)
[2022-08-23 13:26] LABS: Source, Urine Clean Catch
[2022-08-23 13:29] LABS: Appearance, Urine Clear (Clear); Bilirubin, Urine Neg (Neg); Blood, Urine Neg (Neg); Glucose Qualitative, Urine Neg (Neg); Ketones, Urine Neg (Neg); Leukocyte Esterase, Urine Neg (Neg); Nitrite, Urine Neg (Neg); Protein, Urine Neg (Neg); Specific Gravity, Urine 1.005 (1.003-1.022); Urobilinogen, Urine NORM (Normal)
[2022-08-23 13:42] LABS: Color, Urine Pale Yellow (P-Yellow)
[2022-08-23] MEDS ORDERED: AMOCLA875 PO ×2 (17:16→17:17)
== END 2022-08-23 19:08 | disposition home or self-care (01) ==
LOC: ER 11:58
PROVIDERS: Physician Assistant
DX: K57.32 Diverticulitis of large intestine without perforation or abscess without bleeding (principal); E87.1 Hypo-osmolality and hyponatremia; I10 Essential (primary) hypertension
CPT/HCPCS: 36415; 74177; 80053; 81003; 83690; 85025; J1170; J2405; J7030; Q9967

== ENCOUNTER 2022-08-28 21:36 | Emergency (ER) | payer OTHER ==
[~2022-08-28] VITALS: Ht 157.5 cm; Wt 108.9 kg
[~2022-08-28 21:36] MED LIST changes: +AMOCLA875 PO
[2022-08-28 22:07] LABS: BASOPHILS ABSOLUTE AUTO 0.06 K/mm3 (0.00-0.23); BASOPHILS PERCENT AUTO 1 % (0-2); EOSINOPHILS ABSOLUTE AUTO 0.04 K/mm3 (0.00-0.68); EOSINOPHILS PERCENT AUTO 0 % (0-6); Hematocrit 39.1 % (33.0-51.0); Hemoglobin 13.4 g/dL (11.5-16.0); IMMATURE GRAN PERCENT AUTO 1 % (0-1); LYMPHOCYTES PERCENT AUTO 14 % (21-46); MONOCYTES ABSOLUTE AUTO 0.73 K/mm3 (0.16-1.47); MONOCYTES PERCENT AUTO 8 % (4-13); Mean Corpuscular HGB 29.8 pg (26.0-34.0); Mean Corpuscular HGB Conc 34.3 g/dL (31.5-36.5); Mean Corpuscular Volume 87 fL (80-100); Mean Platelet Volume 9.1 fL (9.1-12.4); NEUTROPHILS PERCENT AUTO 77 % (41-73); Platelet Count 270 K/mm3 (150-400); RDW Coefficient Variation 14.4 % (11.7-14.2); RDW Standard Deviation 45.5 fL (35.1-46.3); White Blood Cell Count 9.63 K/mm3 (4.00-11.30)
[2022-08-28 22:23] LABS: Albumin, Blood 3.6 g/dL (3.4-5.0); Albumin/Globulin Ratio 0.9 (0.8-1.8); Bilirubin, Total 0.8 mg/dL (0.1-1.0); Bun/Creatinine Ratio 16.3 (12.0-20.0); Calcium, Blood 9.5 mg/dL (8.5-10.1); Creatinine, Blood 0.55 mg/dL (0.40-1.00); Potassium, Blood 4.1 mmol/L (3.5-5.5); Total Protein, Blood 7.6 g/dL (6.4-8.2)
[2022-08-28 23:15] LABS: Source, Urine Clean Catch
[2022-08-28 23:18] LABS: Bilirubin, Urine Neg (Neg); Blood, Urine 1+ (Neg); Glucose Qualitative, Urine Neg (Neg); Ketones, Urine 3+ (Neg); Leukocyte Esterase, Urine 1+ (Neg); Nitrite, Urine Neg (Neg); Protein, Urine 2+ (Neg); Urobilinogen, Urine 1+ (Normal)
[2022-08-28 23:51] LABS: Appearance, Urine Clear (Clear); Color, Urine Yellow (P-Yellow)
[2022-08-28 23:52] LABS: Bacteria Few /hpf; Squamous Epithelial Cells Mod /hpf (Few)
[2022-08-29] MEDS ORDERED: TRAM50 PO (01:09)
== END 2022-08-29 01:35 | disposition home or self-care (01) ==
LOC: ER 21:36
PROVIDERS: Student in an Organized Health Care Education/Training Program
DX: R10.32 Left lower quadrant pain (principal); M54.50 Low back pain, unspecified; I10 Essential (primary) hypertension; Z95.0 Presence of cardiac pacemaker; Z87.891 Personal history of nicotine dependence
CPT/HCPCS: 36415; 80053; 81001; 83690; 85025; 93005; 93010; A9270; J1885

== ENCOUNTER → 2022-10-02 | Outpatient (CLI) | payer OTHER ==
[~2022-10-02] MED LIST changes: +TRAM50 PO
== END | disposition home or self-care (01) ==
LOC: LAB SHORT 18:29
DX: N39.0 Urinary tract infection, site not specified (principal)
CPT/HCPCS: 87077; 87086; 87186

== ENCOUNTER → 2022-11-06 | Outpatient (CLI) | payer OTHER | LOC: LAB 10:40 → LAB SHORT 10:40 | DX: N39.0 Urinary tract infection, site not specified (principal) | CPT/HCPCS: 87077; 87086; 87186 ==

== ENCOUNTER → 2022-12-02 | Outpatient (CLI) | payer OTHER ==
[2022-12-02 13:06] LABS: Source, Urine Clean Catch
[2022-12-02 13:29] LABS: White Blood Cells, Urine TNTC /hpf (0-5)
[2022-12-02 13:30] LABS: Bacteria Rare /hpf; Mucus Light (0-Heavy); Oval Fat Bodies Few /lpf; Squamous Epithelial Cells Not Seen /hpf (Few); Transitional Epithelial Cells Few /hpf (0-Rare)
== END | disposition home or self-care (01) ==
LOC: LAB SHORT 13:03
PROVIDERS: Emergency Medicine
DX: N39.0 Urinary tract infection, site not specified (principal)
CPT/HCPCS: 81015; 87086

== ENCOUNTER → 2023-02-21 | Outpatient (CLI) | payer OTHER | LOC: LAB 11:25 → LAB SHORT 11:25 | DX: R30.0 Dysuria (principal) | CPT/HCPCS: 87077; 87086; 87186 ==

== ENCOUNTER → 2023-03-21 | Outpatient (CLI) | payer OTHER | END | disposition home or self-care (01) | LOC: LAB SHORT 12:05 → LAB 12:05 | DX: N39.0 Urinary tract infection, site not specified (principal) | CPT/HCPCS: 87077; 87086; 87186 ==

== ENCOUNTER → 2023-04-12 | Outpatient (CLI) | payer OTHER | END | disposition home or self-care (01) | LOC: LAB SHORT 17:39 → LAB 17:39 | DX: R82.79 Other abnormal findings on microbiological examination of urine (principal) | CPT/HCPCS: 87077; 87086; 87186 ==

== ENCOUNTER → 2023-04-26 | Outpatient (CLI) | payer OTHER | LOC: LAB SHORT 15:50 → LAB 15:50 | DX: R30.0 Dysuria (principal) | CPT/HCPCS: 87077; 87086; 87186 ==

== ENCOUNTER 2023-08-21 06:27 | Day surgery (SDC) | payer OTHER ==
[2023-08-21] VITALS (9 sets, daily range): BP systolic 97–148; BP diastolic 54–78
[~2023-08-21] VITALS: Ht 157.5 cm; Wt 103.0 kg
[2023-08-21] MEDS ORDERED: CLIMARA1 EACH TOP (07:04)
[2023-08-21] MEDS ORDERED: GABA100 PO (07:05)
--- NOTE | 2023-08-21 11:43 | NUR ---
PT IV DC'D. CATH INTACT. PRESSURE DSG IN PLACE. PT DRESSES SELF WITHOUT DIFF. VSS. NADN. PT VERBALIZES UNDERSTANDING WRITTEN AND VERBAL INSTRUCTIONS. PT WILL DC HOME VIA WC BY DAUGHTER.
--- NOTE | 2023-08-21 12:19 | NUR ---
PT AND DAUGHTER VERBALIZED UNDERSTANDING OF WRITTEN AND VERBAL D/C INST. IV REMOVED. PT TAKEN OUT OF THE HRT CENTER VIA W/C.
== END 2023-08-21 11:46 | disposition home or self-care (01) ==
LOC: MHTC 06:27 → MHTC NI 06:27 → MHTC 06:28 → ORSCMMR 06:28 → MHTC NI 06:28 → MHTC 11:46 → MHTC NI 13:00 → ORSCMMR 13:00 → MHTC 13:00
DX: Z45.010 Encounter for checking and testing of cardiac pacemaker pulse generator [battery] (principal); I10 Essential (primary) hypertension; E78.5 Hyperlipidemia, unspecified; G47.33 Obstructive sleep apnea (adult) (pediatric); I77.9 Disorder of arteries and arterioles, unspecified; I77.810 Thoracic aortic ectasia; E11.9 Type 2 diabetes mellitus without complications; Z88.2 Allergy status to sulfonamides; Z88.1 Allergy status to other antibiotic agents; Z88.8 Allergy status to other drugs, medicaments and biological substances; Z87.891 Personal history of nicotine dependence; I48.0 Paroxysmal atrial fibrillation; E66.01 Morbid (severe) obesity due to excess calories; Z68.41 Body mass index [BMI] 40.0-44.9, adult
CPT/HCPCS: 33228; 99152; 99153; C1781; C1785; J0690; J1644; J2250; J3010; J7030; J7040

== ENCOUNTER → 2024-02-12 | Outpatient (CLI) | payer OTHER ==
[~2024-02-12] MED LIST changes: +CLIMARA1 EACH TOP; +GABA100 PO
== END | disposition home or self-care (01) ==
LOC: LAB SHORT 12:25 → LAB 12:25
DX: N39.0 Urinary tract infection, site not specified (principal)
CPT/HCPCS: 87077; 87086; 87186

== ENCOUNTER → 2024-06-30 | Outpatient (CLI) | payer OTHER | END | disposition home or self-care (01) | LOC: LAB SHORT 17:40 → LAB 17:40 | DX: N39.0 Urinary tract infection, site not specified (principal) | CPT/HCPCS: 87077; 87086; 87186 ==

== ENCOUNTER → 2024-07-17 | Outpatient (CLI) | payer OTHER | END | disposition home or self-care (01) | LOC: LAB SHORT 18:23 → LAB 18:23 | DX: N39.0 Urinary tract infection, site not specified (principal) | CPT/HCPCS: 87077; 87086; 87186 ==

== ENCOUNTER 2024-08-21 16:07 | Emergency (ER) | payer OTHER ==
[~2024-08-21] VITALS: Ht 157.5 cm; Wt 104.3 kg
[2024-08-21 18:28] VITALS: BP 115/61
[2024-08-21] MEDS ORDERED: HYDROcodone 5-APAP 325 TAB PO ONE (18:50)
[2024-08-21] MEDS ORDERED: Voltaren100 GM TOP (19:03)
[2024-08-21] MEDS ORDERED: RX Prepack 6 Tabs Oxycodone 5mg UD ONE (19:05)
[2024-08-21] MEDS ORDERED: Ibuprofen 600 MG Tab PO ONE (19:05)
[2024-08-21] MEDS ORDERED: Acetaminophen 325 MG TABLET PO ONE (19:05)
== END 2024-08-21 19:30 | disposition home or self-care (01) ==
LOC: ER 16:07
DX: S42.211A Unspecified displaced fracture of surgical neck of right humerus, initial encounter for closed fracture (principal); I48.91 Unspecified atrial fibrillation; I11.0 Hypertensive heart disease with heart failure; I50.9 Heart failure, unspecified; K21.9 Gastro-esophageal reflux disease without esophagitis; E78.5 Hyperlipidemia, unspecified; G47.33 Obstructive sleep apnea (adult) (pediatric); E11.9 Type 2 diabetes mellitus without complications; W01.0XXA Fall on same level from slipping, tripping and stumbling without subsequent striking against object, initial encounter; Z51.5 Encounter for palliative care; Z87.891 Personal history of nicotine dependence; Z79.84 Long term (current) use of oral hypoglycemic drugs; Z79.899 Other long term (current) drug therapy
CPT/HCPCS: 73060; 99283-25; A9270